=== PATIENT | male | born 1945 | race Caucasian/White ===

== ENCOUNTER 2017-05-26 10:59 | Emergency (ER) | payer OTHER ==
[2017-05-26 11:07] VITALS: BP 152/101; PULSE 66; RESP 18; TEMP 98.1; O2SAT 97
--- NOTE | 2017-05-26 12:08 | EDPHY ---
H & P Time Seen by Provider: 05/26/17 11:34 HPI/ROS: CHIEF COMPLAINT: Epistaxis, resolved HISTORY OF PRESENT ILLNESS: 72-year-old male with no anticoagulant use history arrives via private vehicle complaining of transient epistaxis left-sided, now resolved after direct pressure. No headache. No nausea or vomiting. No chest pain.. He has concurrent URI symptoms as blowing his nose quite a bit. PHYSICAL EXAM (Prior to examination, patient consented to physical exam, hands were washed and my usual and customary physical exam procedures followed) 1) GENERAL: Well-developed, well-nourished, alert and oriented. Appears to be in no acute distress. 2) HEAD: Normocephalic 3) HEENT: sclera anicteric. Bilateral ears clear no effusion no infection. Right nostril clear no bleeding. Left nostril, area of friability anterior nose noted with no active bleeding. 4) LUNGS: Breathing comfortably. Smoking Status: Never smoked Constitutional: Initial Vital Signs Temperature (C) 36.7 C 05/26/17 11:04 Heart Rate 66 05/26/17 11:04 Respiratory Rate 18 05/26/17 11:04 Blood Pressure 152/101 H 05/26/17 11:04 O2 Sat (%) 97 05/26/17 11:04 O2 Delivery Mode Room Air Allergies/Adverse Reactions: No Known Allergies Allergy (Unverified 05/26/17 11:03) Home Medications: Medication Instructions Recorded Albuterol Sulfate [Proventil Hfa] 6.7 gm IH 05/26/17 Budesonide/Formoterol 160/4.5 60 puffs IH 05/26/17 [Symbicort 160-4.5 Mcg Inh (*)] Simvastatin [Zocor] 40 mg PO 05/26/17 oxyCODONE/APAP 5/325 [Percocet 1 tab PO 05/26/17 5/325 (*)] MDM/Departure - MDM ED Course/Re-evaluation: 12:08 p.m.: This patient has no active epistaxis, no anticoagulant use history , is hemodynamically stable, not tachycardic. He has a significant time restrained notably his is to be scheduled for surgery this afternoon at [facility] and he would like to accompany her. I offered to perform silver nitrate cauterization however due to time constraints he prefers to be discharged from the ER with my usual and customary epistaxis precautions including nasal clamping should he develop return of epistaxis and return to the ER if epistaxis continues after clamping.. States he feels comfortable with this plan. - Depart Disposition: Home, Routine, Self-Care Clinical Impression: Left-sided nosebleed Condition: Good Instructions: Nosebleed (ED) Referrals: Matthias Calderon MD [Medical Doctor] - As per Instructions
== END 2017-05-26 11:50 | disposition home or self-care (01) ==
DX: R04.0 Epistaxis (principal)